=== PATIENT | female | born 1975 | race Caucasian/White ===

== ENCOUNTER 2019-04-04 09:44 | Emergency (ER) | payer OTHER, SELFPAY ==
[2019-04-04 09:54] VITALS: BP 120/85; RESP 16; O2SAT 96; BMI 30.7
--- NOTE | 2019-04-04 09:58 | DI.RAD.S_ITS ---
PROCEDURE: XR CHEST 2V INDICATIONS: cough 1 week TECHNIQUE: 2 views of the chest were acquired. COMPARISON: None. FINDINGS: Surgical changes and devices: None. Lungs and pleura: Lungs are clear. No pleural effusions or pneumothorax. Mediastinum: Mediastinal contours are normal. Heart size is normal. Bones and chest wall: No suspicious bony abnormalities. Soft tissues appear unremarkable. IMPRESSION: No acute cardiopulmonary findings. Dictated by: Kaylyn Tovar M.D. on 04/04/2019 at 9:14 Approved by: Kaylyn Tovar M.D. on 04/04/2019 at 9:15
--- NOTE | 2019-04-04 10:00 | ED.URI ---
HPI - URI/Sore Throat General Chief Complaint: Upper Respiratory Symptoms Stated Complaint: Thinks resp infection Time Seen by Provider: 04/04/19 09:53 Source: patient Mode of arrival: Ambulatory Limitations: no limitations History of Present Illness HPI Narrative: Patient is a 43-year-old female who presents with sore throat and cough ongoing for 1 week. She denies any shortness of breath she says her throat has actually gotten better however she continues to have productive cough. She denies any fever body aches. She took Mucinex this morning. She says it has overall just not getting any better. Last night she also had some dry crusting discharge from her eye mostly her right she feels like she may have scratched her eye as well. It looks pink this morning. MD Complaint: cough, nasal congestion and sinus pain Onset (ago): week(s) (1) Review of Systems Constitutional Constitutional: Denies chills, Denies fever(s), Denies lethargy and Denies weakness Eyes Eyes: Reports as per HPI, Reports eye discharge and Reports irritation ENT Ears, Nose, Mouth, and Throat: Reports sore throat (Now improved) Cardiovascular Cardiovascular: Denies chest pain, Denies irregular heart rhythm, Denies lightheadedness, Denies palpitations and Denies orthopnea Respiratory Respiratory: Reports chest congestion and Reports cough Gastrointestinal Gastrointestinal: Denies abdominal pain, Denies change in bowel habits, Denies diarrhea, Denies nausea and Denies vomiting Genitourinary Genitourinary: Denies hematuria, Denies flank pain, Denies urinary incontinence and Denies urinary urgency Musculoskeletal Musculoskeletal: Denies back pain, Denies muscle weakness, Denies numbness and Denies tingling Integumentary/Breasts Skin/Breast: Denies pruritus, Denies erythema, Denies rash and Denies wounds Neurologic Neurologic: Denies numbness, Denies tingling and Denies weakness Endocrine Endocrine: Denies palpitations Patient History Medical History Fibromyalgia (Acute) Migraine (Acute) Surgical History Status post hysterectomy (Acute) Social History Smoking Status: Never smoker alcohol intake frequency: 0-2 drinks per day Substance Use Type: marijuana Exam Initial Vital Signs Initial Vital Signs: Vital Signs Respiratory Rate 16 04/04/19 09:54 Blood Pressure 120/85 04/04/19 09:54 Pulse Oximetry 96 04/04/19 09:54 GENERAL: Well-appearing, well-nourished and in no acute distress. HEENT: Head atraumatic,EOMI, pupils reactive, face symmetric, moist mucous membranes EYES: Both eye was treated with proparacaine, stained with fluorescein. No dye uptake. No foreign body. PHARYNX: No erythema, no tonsillar exudate, no cervical lymphadenopathy CARDIOVASCULAR: Regular rate and rhythm without murmurs, rubs or gallops. RESPIRATORY: Breath sounds equal bilaterally, no wheezes rales or rhonchi. ABDOMEN: Soft, nontender. Normoactive bowel sounds all 4 quadrants. No guarding or rebound. EXTREMITIES: Normal range of motion, no clubbing or edema. Neurovascularly intact NEUROLOGICAL: Alert and oriented x4.Normal gait and speech. Cranial nerves II through XII grossly intact. SKIN: Warm, dry, no laceration, no petechiae, no rashes or lesions. Course Orders Ordered: ED Orders 04/04/19 09:58 XR chest 2V Stat Discontinued Medications Proparacaine HCl (Parcaine 0.5% Ophth Pavithra) 1 drops EYE-BOTH NOW ONE Stop: 04/04/19 10:00 Vital Signs Vital signs: Vital Signs - 8 hr 04/04/19 09:54 04/04/19 10:30 04/04/19 11:00 Pulse Rate 92 H 84 Respiratory Rate 16 16 15 Blood Pressure 120/85 Blood Pressure [Right Arm] 126/78 118/90 Pulse Oximetry 96 96 93 04/04/19 11:15 Pulse Rate 81 Respiratory Rate 18 Blood Pressure 118/90 Blood Pressure [Right Arm] Pulse Oximetry 96 MDM - URI/Sore Throat Imaging Data Chest x-ray: Radiologist's impression: PROCEDURE: XR CHEST 2V INDICATIONS: cough 1 week TECHNIQUE: 2 views of the chest were acquired. COMPARISON: None. FINDINGS: Surgical changes and devices: None. Lungs and pleura: Lungs are clear. No pleural effusions or pneumothorax. Mediastinum: Mediastinal contours are normal. Heart size is normal. Bones and chest wall: No suspicious bony abnormalities. Soft tissues appear unremarkable. IMPRESSION: No acute cardiopulmonary findings. Dictated by: Kaylyn Tovar M.D. on 04/04/2019 at 9:14 MDM Narrative Medical decision making narrative: Patient is not septic since the been ongoing for a week no sign of pneumonia x-ray is clear. This is likely viral with a viral conjunctivitis. No corneal abrasion noted. no need for antibiotics at this time. I have results patient Discharge Plan Departure Patient Disposition: Home Clinical Impression: Upper respiratory infection Qualifiers: URI type: unspecified viral URI Qualified Code(s): J06.9 - Acute upper respiratory infection, unspecified Discharge Date/Time: 04/04/19 11:15 Instructions: DI for Viral Upper Respiratory Infection -- Adult Activity Restrictions/Additional Instructions: *You have been diagnosed with upper respiratory infection *What to do: Likely viral no need for antibiotics at this time x-rays negative *Continue to take medications as directed *Follow up with your primary care provider in 2-3 days *Return to ER if you should have increasing shortness of breath, weakness, confusion or any new, worsening or concerning symptoms
[2019-04-04 10:30] VITALS: BP 126/78; PULSE 92; RESP 16; O2SAT 96
[2019-04-04 11:00] VITALS: BP 118/90; PULSE 84; RESP 15; O2SAT 93
[2019-04-04 11:15] VITALS: BP 118/90; PULSE 81; RESP 18; O2SAT 96
== END 2019-04-04 11:15 | disposition home or self-care (01) ==
LOC: ED 11:01
PROVIDERS: Emergency Provider Emergency Medicine; PCP Hospitalist
DX: J06.9 Acute upper respiratory infection, unspecified (principal)
CPT/HCPCS: 71046; 99282; 99283

== ENCOUNTER 2020-04-18 01:18 | Emergency (ER) | payer OTHER, SELFPAY ==
[2020-04-18 01:25] VITALS: BP 125/79; PULSE 101; RESP 18; TEMP 36.6; O2SAT 97
--- NOTE | 2020-04-18 01:26 | DI.RAD.S_ITS ---
PROCEDURE: XR CHEST 1V INDICATIONS: Cough and shortness of breath TECHNIQUE: One view of the chest was acquired. COMPARISON: [facility], CR, XR CHEST 2V, 04/04/2019, 9:55. FINDINGS: Surgical changes and devices: None. Lungs and pleura: Lungs are clear. No pleural effusions or pneumothorax. Mediastinum: Mediastinal contours appear normal. Heart size is normal. Bones and chest wall: No suspicious bony lesions. Overlying soft tissues appear unremarkable. IMPRESSION: No acute disease. Dictated by: Daryl Garcia M.D. on 04/18/2020 at 9:00 Approved by: Daryl Garcia M.D. on 04/18/2020 at 9:00
[2020-04-18 01:45] LABS: COVID19 -Nasal RAPID Negative (Negative)
--- NOTE | 2020-04-18 01:54 | ED.GENADULT ---
HPI - General Adult General Chief complaint: Upper Respiratory Symptoms Stated complaint: cough, congestion, throat swollen, SOB Time Seen by Provider: 04/18/20 01:20 Source: patient Mode of arrival: Ambulatory Limitations: no limitations History of Present Illness HPI narrative: Patient is an otherwise healthy 44-year-old female here for evaluation of swelling of her uvula. Also reports a cough and congestion and shortness of breath and also potential exposure to COVID-19. Has not tried anything for symptoms prior to arrival. States she noticed swelling approximately 30 minutes prior to arrival here in the emergency department. Related Data Allergies Allergy/AdvReac Type Severity Reaction Status Date / Time sulfamethoxazole Allergy Rash Verified 04/18/20 01:32 [From ] trimethoprim [From ] Allergy Rash Verified 04/18/20 01:32 Review of Systems Constitutional Constitutional: Reports chills and Denies fever(s) ENT Ears, Nose, Mouth, and Throat: Denies vertigo, Denies dizziness, Reports sinus pressure and Reports sore throat Cardiovascular Cardiovascular: Reports dyspnea Respiratory Respiratory: Reports cough and Reports dyspnea Gastrointestinal Gastrointestinal: Denies abdominal pain, Reports nausea and Denies vomiting Musculoskeletal Musculoskeletal: Denies arthralgias and Denies myalgias Integumentary/Breasts Skin/Breast: Denies lesions and Denies rash Neurologic Neurologic: Denies behavioral changes, Denies vertigo and Denies dizziness Psychiatric Psychiatric: Denies behavioral changes Hematologic/Lymphatic Hematologic/Lymphatic: Denies easy bleeding and Denies easy bruising Allergic/Immunologic Allergic/Immunologic: Denies urticaria Patient History Medical History Fibromyalgia Migraine Surgical History Status post hysterectomy Social History Smoking Status: Never smoker Smoking Status: Never smoker alcohol intake frequency: 0-2 drinks per day Substance Use Type: marijuana Exam Initial Vital Signs Initial Vital Signs: Vital Signs Temperature 97.8 F 04/18/20 01:25 Pulse Rate 101 H 04/18/20 01:25 Respiratory Rate 18 04/18/20 01:25 Blood Pressure 125/79 04/18/20 01:25 Pulse Oximetry 97 04/18/20 01:25 Const General: cooperative, comfortable, well developed, well groomed and No acute distress Limitations: mental status not altered [facility] Head: normal to inspection and normocephalic Ears: hearing grossly normal bilaterally Face and sinus: normal facial exam Mouth: oral mucosae normal, tongue normal, moist mucous membranes and No drooling Throat: uvula midline and uvular edema Resp Effort & Inspection: normal respiratory effort Auscultation: clear to auscultation bilaterally Cardio Rate: regular rate Rhythm: regular rhythm Skin Lesions: no lesions Rashes: no rashes Neuro General: patient alert and patient awake Cognition: normal cognition Speech: speech normal Extrem General: capillary refill normal Psych Appearance: grossly normal and well kempt Course Orders Ordered: ED Orders 04/18/20 01:25 COVID19 Stat 04/18/20 01:26 XR chest 1V Stat Discontinued Medications Dexamethasone (Dexamethasone 4 Mg Tablet) 16 mg PO NOW ONE Stop: 04/18/20 01:55 Last Admin: 04/18/20 01:57 Dose: 16 mg Documented by: Vital Signs Vital signs: Vital Signs - 8 hr 04/18/20 01:25 Temperature 97.8 F Pulse Rate 101 H Respiratory Rate 18 Blood Pressure 125/79 Pulse Oximetry 97 Medical Decision Making Lab Data Lab results reviewed: Yes I reviewed the patient's lab results. Labs: Lab Results 04/18/20 Range/Units 01:25 COVID-19 PCR Negative (Negative) Imaging Data Chest x-ray: Radiologist's Impression: No acute cardiopulmonary process MDM Narrative Medical decision making narrative: Patient is afebrile. No respiratory distress. Lungs clear. COVID negative. Chest x-ray negative. Does have a swollen uvula however the rest of her oropharynx is unremarkable. She denies any rash. Some nausea but no vomiting. Low suspicion for anaphylaxis. Low suspicion for epiglottitis. Low suspicion for strep throat given her physical exam. Does have swollen uvula was given Decadron here in the ER. Hold on any antibiotics for now. Patient was given strict return precautions and follow-up instructions. She expressed understanding and agreement. Discharge Plan Departure Patient Disposition: Home Clinical Impression: Uvulitis Instructions: DI for Uvulitis Activity Restrictions/Additional Instructions: Contact your primary provider for a follow-up. Return to the emergency department for any rash, fevers, problems breathing, inability to swallow, or any other new or worsening symptoms. Referrals: Elsie Jose MD [Primary Care Provider] -
[2020-04-18] MEDS: dexAMETHasone 4 MG TABLET 16 MG PO (01:57)
== END 2020-04-18 02:21 | disposition home or self-care (01) ==
PROVIDERS: Emergency Provider Emergency Medicine; PCP Hospitalist
DX: K12.2 Cellulitis and abscess of mouth (principal); R05 Cough; R06.02 Shortness of breath; J02.9 Acute pharyngitis, unspecified; R11.0 Nausea
CPT/HCPCS: 71045; 87635; 99283